=== PATIENT | female | born 1980 | race Hispanic/Latino ===

== ENCOUNTER 2021-03-07 20:35 | Emergency (ER) | payer OTHER, SELFPAY ==
[2021-03-07 21:33] LABS: Urine Blood 2+ (Negative); Urine Glucose Negative (Negative); Urine Protein Negative (Negative); Urine Specific Gravity 1.025 (1.005-1.030); Urine pH 5.5 (5.0-7.0)
[2021-03-07 21:46] LABS: Urine Specific Gravity/Preg 1.025 (1.005-1.030)
[2021-03-07] MEDS ORDERED: NA CHLORIDE 0.9% 1,000 ML ONE (21:59)
[2021-03-07] MEDS ORDERED: ONDANSETRON 4 MG/2 ML VIAL ONE (21:59)
[2021-03-07 22:17] LABS: Absolute Lymphocytes (CBC) 0.6 K/uL (0.7-4.9); Basophils % 0.3 % (0-1.3); Hematocrit 41.6 % (36.0-45.0); Lymphocytes % 9.2 % (15.3-44.8); MPV 8.7 fL (7.6-11.3); RBC Red Blood Cell Count 4.67 M/uL (3.86-4.86)
[2021-03-07 22:33] LABS: Albumin 3.4 g/dL (3.4-5.0); Bilirubin Direct 0.1 mg/dL (0-0.2); Bilirubin Total 0.3 mg/dL (0.2-1.0); Potassium 3.3 mmol/L (3.5-5.1)
[2021-03-07] MEDS ORDERED: FAMOTIDINE 20 MG/2 ML VIAL IV ONE (22:33)
[2021-03-07] MEDS ORDERED: ACETAMINOPHEN 500 MG TAB ONE (22:46)
[2021-03-08] MEDS ORDERED: BENZONATATE 100 MG CAP PO ONE (00:32)
[2021-03-08] MEDS ORDERED: CASIRIVIMAB/IMDEVIMAB 10 ML VIAL ONE (00:34)
[2021-03-08] MEDS ORDERED: NA CHLORIDE 0.9% 250 ML ONE (00:42)
--- NOTE | 2021-03-08 02:35 | EDPHYS ---
Physician Documentation [facility] Name: Anabela Brush Age: 41 yrs Sex: Female : 1980 Arrival Date: 03/07/2021 Time: 20:44 Bed 14 Private MD: ED Physician Shamir Wallace HPI: 03/07 21:40 This 41 yrs old Female presents to ER via Ambulatory with complaints of cp Nausea/Vomiting/Diarrhea, Cough. 21:40 The patient presents to the emergency department with nausea, that is moderate, cp vomiting, that is intermittent, diarrhea, that is intermittent. Onset: The symptoms/episode began/occurred 5 day(s) ago. Possible causes: unknown. Associated signs and symptoms: Pertinent positives: abdominal pain, anorexia, dysuria, fever, Pertinent negatives: constipation, GI bleeding. Severity of symptoms: in the emergency department the symptoms are unchanged despite home interventions. 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 - Social history:: Smoking status: Patient denies any tobacco usage or history of. ROS: 21:45 Constitutional: Positive for body aches, poor PO intake, Negative for fever. cp 21:45 Eyes: Negative for injury, pain, redness, and discharge. cp 21:45 Respiratory: Positive for cough, "sounds productive", Negative for wheezing. 21:45 Abdomen/GI: Positive for abdominal pain, nausea, vomiting, diarrhea, anorexia, Negative for constipation, hematemesis, black/tarry stool, rectal bleeding. 21:45 Skin: Negative for rash. 21:45 Neuro: Negative for altered mental status, syncope, weakness. 21:45 All other systems are negative. Exam: 21:50 Constitutional: The patient appears in no acute distress, alert, awake, cp non-diaphoretic, non-toxic, well developed, well nourished, obese. 21:50 Head/Face: Normocephalic, atraumatic. cp 21:50 Eyes: Periorbital structures: appear normal, Conjunctiva: normal, no exudate, no injection, Sclera: no appreciated abnormality, Lids and lashes: appear normal, bilaterally. 21:50 ENT: External ear(s): are unremarkable, Nose: is normal, Mouth: Lips: moist, Oral mucosa: moist, Posterior pharynx: Airway: no evidence of obstruction, patent, Tonsils: are normal in appearance, Uvula: midline, erythema, is not appreciated, exudate, is not appreciated. 21:50 Neck: ROM/movement: is normal, is supple, without pain, no range of motions limitations, no meningismus. 21:50 Chest/axilla: Inspection: normal, Palpation: is normal, no crepitus, no tenderness. 21:50 Cardiovascular: Rate: tachycardic, Rhythm: regular, Edema: is not appreciated, JVD: is not appreciated. 21:50 Respiratory: the patient does not display signs of respiratory distress, Respirations: normal, no use of accessory muscles, no retractions, labored breathing, is not present, Breath sounds: bronchial sounds, that are mild, are heard diffusely, stridor, is not appreciated, + upper airway congestion. wheezing: is not appreciated. 21:50 Abdomen/GI: Inspection: abdomen appears normal, Bowel sounds: active, all quadrants, Palpation: soft, in all quadrants, nontender, in all quadrants, rebound tenderness, is not appreciated, involuntary guarding, is not appreciated. 21:50 Back: CVA tenderness, is absent. 21:50 Neuro: Orientation: to person, place \\T\\ time. Mentation: is normal, Motor: moves all fours, strength is normal, Sensation: is normal. Vital Signs: 20:56 BP 109 / 85; Pulse 112; Resp 16 S; Temp 99.1(O); Pulse Ox 95% on R/A; Weight 81.65 kg bb (R); Height 5 ft. 0 in. (152.40 cm) (R); Pain 8/10; 21:57 BP 103 / 70; Pulse 106; Resp 19; Pulse Ox 96% on R/A; Pain 0/10; dc2 23:00 BP 108 / 58; Pulse 94; Resp 18; Pulse Ox 99% ; Pain 0/10; dc2 03/08 01:00 BP 115 / 78; Pulse 88; Resp 17; Temp 97.6; Pulse Ox 99% ; Pain 4/10; dc2 01:15 BP 114 / 71; Pulse 87; Resp 18; Pulse Ox 94% ; Pain 4/10; dc2 01:30 BP 111 / 71; Pulse 85; Resp 17; Pulse Ox 95% ; Pain 4/10; dc2 01:45 BP 101 / 70; Pulse 86; Resp 18; Pulse Ox 95% ; Pain 2/10; dc2 02:00 BP 110 / 72; Pulse 86; Resp 17; Pulse Ox 95% ; Pain 2/10; dc2 03:00 BP 107 / 68; Pulse 89; Resp 17; Temp 98.0; Pulse Ox 96% on R/A; Pain 0/10; dc2 03/07 20:56 Body Mass Index 35.15 (81.65 kg, 152.40 cm) bb MDM: 03/07 21:22 Patient medically screened. 03/08 02:32 Data reviewed: vital signs, nurses notes, lab test result(s), radiologic studies, plain cp films. Test interpretation: by ED physician or midlevel provider: plain radiologic studies. ED course: VSS. Patient appears non-toxic and no signs of respiratory distress. Will discharge to home for continued monitoring. 03/07 21:32 Order name: Urine Dipstick-Ancillary; Complete Time: 22:47 EDMS 03/08 02:30 Interpretation: Normal except: UKET 2+; UBLD 2+. cp 03/07 21:44 Order name: Urine --Ancillary; Complete Time: 22:47 EDMS 03/07 21:54 Order name: Basic Metabolic Panel cp 03/07 21:54 Order name: CBC with Diff cp 03/07 21:54 Order name: Hepatic Function cp 03/07 21:54 Order name: Lipase cp 03/07 21:54 Order name: Strep; Complete Time: 02:29 cp 03/07 21:54 Order name: Influenza Screen (a \\T\\ B); Complete Time: 02:29 cp 03/07 21:55 Order name: Basic Metabolic Panel; Complete Time: 22:47 EDMS 03/08 02:29 Interpretation: Normal except: K 3.3; GLUC 129; GFR 65. cp 03/07 21:55 Order name: CBC with Automated Diff; Complete Time: 22:47 EDMS 03/08 02:30 Interpretation: Normal except: ARNULFO% 83.9; LYM% 9.2; LYMA 0.6. 03/07 21:55 Order name: Liver (Hepatic) Function; Complete Time: 22:47 EDMS 03/08 02:30 Interpretation: Normal except: AST 88; ALT 97; GLOB 4.6; A/G 0.7. 03/07 21:54 Order name: IV Saline Lock; Complete Time: 22:04 03/07 21:54 Order name: Labs collected and sent; Complete Time: 22:04 03/07 21:55 Order name: Lipase; Complete Time: 22:47 EDMS 03/07 22:22 Order name: SARS-COV-2 RT PCR; Complete Time: 02:29 EDMS 03/08 02:29 Interpretation: Results reviewed. 03/07 22:49 Order name: XRAY Chest Pa And Lat (2 Views) 03/07 23:06 Order name: Throat Culture EDMS Administered Medications: 03/07 21:39 Drug: NS 0.9% 1000 ml Route: IV; Rate: 1 bolus; Infused Over: 1 hrs; Site: right dc2 antecubital; 22:39 Follow up: IV Status: Completed infusion; IV Intake: 1000ml dc2 21:45 Drug: Zofran (Ondansetron) 4 mg Route: IVP; Site: right antecubital; dc2 22:15 Follow up: Response: Nausea is decreased dc2 22:30 Drug: Tylenol 1000 mg Route: PO; dc2 23:10 Follow up: Response: Pain is decreased dc2 03/08 00:40 Drug: Tessalon Perle (benzonatate) 200 mg Route: PO; dc2 01:30 Follow up: Response: Marked relief of symptoms dc2 00:50 Drug: Casirivimab-Imdevimab Dose Pack 120 mg/mL-120 mg/mL (EUA) 1 application Route: dc2 IV; Rate: 250 ml/hr; Infused Over: 1 hrs; Site: right antecubital; Delivery: Primary tubing; 02:15 Follow up: IV Status: Completed infusion; IV Intake: 250ml dc2 03:06 Drug: Potassium Effervescent Tablet 50 mEq Route: PO; dc2 03:19 Follow up: Response: No adverse reaction dc2 Disposition: 03:44 Co-signature as Attending Physician, Shamir Wallace MD. 7 Disposition Summary: 03/08/21 02:35 Discharge Ordered Location: Home cp Problem: new cp Symptoms: have improved cp Condition: Stable cp Diagnosis - Pneumonia due to SARS-associated coronavirus cp - Diarrhea, unspecified cp - Nausea with vomiting, unspecified cp Followup: cp - With: Private Physician - When: 2 - 3 days - Reason: Recheck today's complaints Discharge Instructions: - Discharge Summary Sheet cp - Food Choices to Help Relieve Diarrhea, Adult cp - Diarrhea, Adult cp - Aspirin and Your Heart cp - COVID-19 cp - COVID-19 Frequently Asked Questions cp - 10 Things You Can Do to Manage Your COVID-19 Symptoms at Home - [facility] cp Forms: - Medication Reconciliation Form cp - Thank You Letter cp - Antibiotic Education cp - Prescription Opioid Use cp Prescriptions: - Zofran 4 mg Oral Tablet - take 1 tablet by ORAL route every 12 hours As needed; 20 tablet; Refills: 0, cp Product Selection Permitted - Tessalon Perles 100 mg Oral Capsule - take 2 capsule by ORAL route every 8 hours As needed; 30 capsule; Refills: 0, cp Product Selection Permitted - Zithromax Z-Ricardo 250 mg Oral Tablet - take 1 tablet by ORAL route as directed for 5 days Day 1 - take two (2) tablets cp one time. Day 2, 3, 4 , 5 take one (1) tablet once daily.; 6 tablet; Refills: 0, Product Selection Permitted - Prednisone 20 mg Oral Tablet - take 2 tablets by ORAL route once daily for 5 days; 10 tablet; Refills: 0, cp Product Selection Permitted Signatures: Dispatcher [employer] EDGriselda Momin RN RN Usama Herrera PA PA cp Shamir Wallace MD MD 7 BaileyMacey RN RN dc2 Corrections: (The following items were deleted from the chart) 03/07 22:22 21:55 CORONAVIRUS+ ordered. EDAR EDMS
--- NOTE | 2021-03-08 02:35 | ER ---
Nurse's Notes [facility] Name: Anabela Brush Age: 41 yrs Sex: Female : 1980 Arrival Date: 03/07/2021 Time: 20:44 Bed 14 Private MD: Diagnosis: Pneumonia due to SARS-associated coronavirus;Diarrhea, unspecified;Nausea with vomiting, unspecified Presentation: 03/07 20:56 Chief complaint: Patient states: she has been feeling sick x 1 week with congestion, bb cough, VILLA, N,V,D, sore throat, difficulty swallowing. Coronavirus screen: congestion, diarrhea, fever, headache, muscle pain, vomiting. Client presents with at least one sign or symptom that may indicate coronavirus-19. Standard/surgical mask placed on the client. Ebola Screen: No symptoms or risks identified at this time. Initial Sepsis Screen: Does the patient meet any 2 criteria? No. Patient's initial sepsis screen is negative. Does the patient have a suspected source of infection? No. Patient's initial sepsis screen is negative. Risk Assessment: Do you want to hurt yourself or someone else? Patient reports no desire to harm self or others. Onset of symptoms was February 28, 2021. 20:56 Method Of Arrival: Ambulatory bb 20:56 Acuity: CECILAI 3 bb Triage Assessment: 20:58 General: Appears in no apparent distress. uncomfortable, Behavior is calm, cooperative. bb Pain: Complains of pain in back. Neuro: Level of Consciousness is awake, alert, obeys commands, Oriented to person, place, time, situation. Cardiovascular: Capillary refill < 3 seconds Patient's skin is warm and dry. Respiratory: Respiratory effort is even, unlabored, Respiratory pattern is regular. GI: Reports diarrhea, nausea, vomiting. Derm: Skin is pink, warm \T\ dry. Musculoskeletal: Circulation, motion, and sensation intact. Reports muscle aches. 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 - Social history:: Smoking status: Patient denies any tobacco usage or history of. Screenin:00 Abuse screen: Denies threats or abuse. Denies injuries from another. Nutritional dc2 screening: No deficits noted. Pt states not much of an appetite the past week due to the nausea and vomiting.. 21:00 Fall Risk None identified. No fall in past 12 months (0 pts). No secondary diagnosis (0 dc2 pts). No IV (0 pts). Ambulatory Aid- None/Bed Rest/Nurse Assist (0 pts). Gait- Normal/Bed Rest/Wheelchair (0 pts) Mental Status- Oriented to own ability (0 pts). Total Alvarado Fall Scale indicates No Risk (0-24 pts). 21:00 Tuberculosis screening: No symptoms or risk factors identified. Never had TB. dc2 Assessment: 21:00 General: Appears in no apparent distress. comfortable, obese, well groomed, well dc2 developed, Behavior is calm, cooperative, Talking and laughing with sister at side. Pt is with an occasional hacky cough. 21:00 Pain: Denies pain. Neuro: No deficits noted. Level of Consciousness is awake, alert, dc2 obeys commands, Oriented to person, place, time, situation. Respiratory: No deficits noted. Reports cough that is non-productive, hacking, since 5 days ago. GI: Abdomen is round non-distended, obese, Bowel sounds present X 4 quads. Reports diarrhea, nausea. : No deficits noted. No signs and/or symptoms were reported regarding the genitourinary system. Urine is clear. EENT: No deficits noted. No signs and/or symptoms were reported regarding the EENT system. Derm: No deficits noted. No signs and/or symptoms reported regarding the dermatologic system. Musculoskeletal: No deficits noted. No signs and/or symptoms reported regarding the musculoskeletal system. Capillary refill < 3 seconds, fingers. 22:15 Reassessment: Pt complain of headache, will make provider aware. ms2 03/08 01:05 Reassessment: 0105 Pt tolerating infusion well, vss, continue to monitor, sister at ms2 bedside, call light within reach. 01:30 Reassessment: Infusion completed, pt voices she feels the same, no needs at this time, dc2 Update with poc regarding watching her for an hour for side effects. Pt voices understanding. VSS. Continue to monitor. 02:00 Reassessment: Infusion continues, vss, pt voices no needs, denies pain, discomfort or dc2 any complaints at this time. Call light within reach. NAD noted. SIster at side. 02:20 Reassessment: correction, infusion completed at 0220 am Unable to fix time on prior dc2 charting . Vital Signs: 03/07 20:56 BP 109 / 85; Pulse 112; Resp 16 S; Temp 99.1(O); Pulse Ox 95% on R/A; Weight 81.65 kg bb (R); Height 5 ft. 0 in. (152.40 cm) (R); Pain 8/10; 21:57 BP 103 / 70; Pulse 106; Resp 19; Pulse Ox 96% on R/A; Pain 0/10; dc2 23:00 BP 108 / 58; Pulse 94; Resp 18; Pulse Ox 99% ; Pain 0/10; dc2 03/08 01:00 BP 115 / 78; Pulse 88; Resp 17; Temp 97.6; Pulse Ox 99% ; Pain 4/10; dc2 01:15 BP 114 / 71; Pulse 87; Resp 18; Pulse Ox 94% ; Pain 4/10; dc2 01:30 BP 111 / 71; Pulse 85; Resp 17; Pulse Ox 95% ; Pain 4/10; dc2 01:45 BP 101 / 70; Pulse 86; Resp 18; Pulse Ox 95% ; Pain 2/10; dc2 02:00 BP 110 / 72; Pulse 86; Resp 17; Pulse Ox 95% ; Pain 2/10; dc2 03:00 BP 107 / 68; Pulse 89; Resp 17; Temp 98.0; Pulse Ox 96% on R/A; Pain 0/10; dc2 03/07 20:56 Body Mass Index 35.15 (81.65 kg, 152.40 cm) ED Course: 03/07 20:44 Patient arrived in ED. wm 20:57 Triage completed. bb 20:58 Arm band placed on Patient placed in an exam room, on a stretcher, on pulse oximetry. bb Family accompanied patient. 21:04 Usama Mcdonough PA is PHCP. cp 21:04 Shamir Wallace MD is Attending Physician. cp 21:15 Patient has correct armband on for positive identification. Placed in gown. Bed in low dc2 position. Call light in reach. Side rails up X 1. child monitor on. Pulse ox on. NIBP on. Door closed. Lights dimmed. 21:19 Macey Avalos, RN is Primary Nurse. dc2 21:25 Inserted saline lock: 20 gauge in right antecubital area, using aseptic technique. dc2 Blood collected. 21:57 No provider procedures requiring assistance completed. dc2 22:02 Lipase Sent. dc2 22:02 Basic Metabolic Panel Sent. dc2 22:02 CBC with Automated Diff Sent. dc2 22:02 Liver (Hepatic) Function Sent. dc2 22:03 Basic Metabolic Panel Sent. dc2 22:04 CBC with Diff Sent. dc2 22:04 Lipase Sent. dc2 22:04 Hepatic Function Sent. dc2 23:[address] via wheelchair. dc2 23:43 XRAY Chest Pa And Lat (2 Views) In Process Unspecified. EDMS 03/08 03:04 IV discontinued, intact, bleeding controlled, No redness/swelling at site. Pressure dc2 dressing applied. Administered Medications: 03/07 21:39 Drug: NS 0.9% 1000 ml Route: IV; Rate: 1 bolus; Infused Over: 1 hrs; Site: right dc2 antecubital; 22:39 Follow up: IV Status: Completed infusion; IV Intake: 1000ml dc2 21:45 Drug: Zofran (Ondansetron) 4 mg Route: IVP; Site: right antecubital; dc2 22:15 Follow up: Response: Nausea is decreased dc2 22:30 Drug: Tylenol 1000 mg Route: PO; dc2 23:10 Follow up: Response: Pain is decreased dc2 03/08 00:40 Drug: Tessalon Perle (benzonatate) 200 mg Route: PO; dc2 01:30 Follow up: Response: Marked relief of symptoms dc2 00:50 Drug: Casirivimab-Imdevimab Dose Pack 120 mg/mL-120 mg/mL (EUA) 1 application Route: dc2 IV; Rate: 250 ml/hr; Infused Over: 1 hrs; Site: right antecubital; Delivery: Primary tubing; 02:15 Follow up: IV Status: Completed infusion; IV Intake: 250ml dc2 03:06 Drug: Potassium Effervescent Tablet 50 mEq Route: PO; dc2 03:19 Follow up: Response: No adverse reaction dc2 Intake: 03/07 22:39 IV: 1000ml; Total: 1000ml. dc2 03/08 02:15 IV: 250ml; Total: 1250ml. dc2 Outcome: 02:35 Discharge ordered by MD. cp 03:14 Discharged to home ambulatory. dc2 03:14 Condition: stable 03:14 Discharge instructions given to patient, Instructed on discharge instructions, follow up and referral plans. Demonstrated understanding of instructions, follow-up care, Prescriptions given X 4. 03:18 Patient left the ED. dc2 Signatures: Dispatcher [employer] EDGriselda Momin RN RN Usama Herrera PA PA cp Marsh, Wendy wm Charters, Denise, RN RN dc2 Corrections: (The following items were deleted from the chart) 02:31 02:15 Reassessment: Infusion completed, pt voices she feels the same, no needs at this dc2 time, Update with poc regarding watching her for an hour for side effects. Pt voices understanding. VSS. Continue to monitor. dc2
[2021-03-08] MEDS ORDERED: POTASSIUM 25 MEQ EFFERV TAB ONE (03:33)
[2021-03-08 04:37] VITALS: BP 107/68; TEMP 98; O2SAT 96
--- NOTE | 2021-03-08 08:09 | RAD REPORT ---
EXAM DESCRIPTION: RAD - Chest Pa And Lat (2 Views) - 03/07/2021 11:43 pm CLINICAL HISTORY: COUGH COMPARISON: ABDOMEN 1 VIEW KUB dated 11/10/2007 FINDINGS: Lines: None. Lungs: Faint airspace disease in left mid lung and left lung base. Pleural: No significant pleural effusions or pneumothorax. Cardiac: The heart size is within normal limits. Bones: No acute fractures. Other: IMPRESSION: Faint airspace disease in the left mid lung and left lung base could reflect pneumonia.
== END 2021-03-08 03:18 | disposition home or self-care (01) ==
LOC: ER 20:35
DX: U07.1 COVID-19 (principal); J12.82 Pneumonia due to coronavirus disease 2019; R19.7 Diarrhea, unspecified
CPT/HCPCS: 36415; 71046; 80048; 80076; 81003; 81025; 83690; 85025; 87070; 87081; 87804; 96361; 96365; 96375; 99285; J2405; J7030; J7050; M0243; U0003

== ENCOUNTER → 2023-06-15 | Emergency (ER) | payer OTHER, SELFPAY ==
[~2023-06-15] MED LIST: CYCLOBENZAPRINE 10 MG TAB ONE
[2023-06-16 00:58] LABS: Specific Gravity 1.017 (1.005-1.030)
[2023-06-16 01:05] LABS: Specific Gravity 1.017 (1.005-1.030); Urine Bacteria <20 /HPF (<20); Urine Bilirubin NEGATIVE (Negative); Urine Blood Trace (Negative); Urine Clarity Extremely Turbid (Clear); Urine Color Light-Yellow (Yellow); Urine Glucose NEGATIVE (Negative); Urine Mucus Slight /HPF (None Seen); Urine Protein TRACE (Negative); Urine Urobilinogen Normal (Normal); Urine pH 6.5 (5.0-7.0)
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
--- NOTE | 2023-06-16 09:41 | RAD REPORT ---
EXAM DESCRIPTION: CT - Abdomen Pelvis Wo Contrast - 06/16/2023 6:15 am CLINICAL HISTORY: ABD PAIN COMPARISON: None Available. TECHNIQUE: CT of the abdomen and pelvis without IV contrast. Evaluation of the solid organs and vasc ulature is suboptimal due to lack of IV contrast. This exam was performed according to our department al dose-optimization program, which includes automated exposure control, adjustment of the mA and/or kV according to patient size and/or use of iterative reconstruction technique. FINDINGS: Lung Bases: The visualized lung bases are clear. Bones: Mild endplate spondylosis, disc narrowing, and facet arthropathy. Abdomen: Liver: Hepatomegaly with diffusely decreased density. Gallbladder: No calcified gallstones. Spleen, Pancreas, and Adrenal Glands: 3.5 cm right adrenal nodule with average Hounsfield units of -6. The left adrenal gland, spleen, and pancreas are unremarkable. Kidneys: The kidneys have normal size without evidence of hydronephrosis. No obstructing ureteral xena culi. Punctate nonobstructing right nephrolithiasis. Vasculature: The aorta and IVC have normal caliber and position. Stomach: The stomach and duodenum have normal course. Other: No free intraperitoneal air. No free fluid or lymphadenopathy. Pelvis: Bladder: Urinary bladder is unremarkable. Bowel: No dilated loops of large or small bowel. Scattered diverticula of the colon. Appendix: Normal appendix. Pelvis: IUD in place. IMPRESSION: 1. No acute inflammatory or obstructive process identified. 2. Hepatomegaly and hepatic steatosis. 3. Diverticulosis without evidence of acute diverticulitis. 4. 3.5 cm right adrenal mass, consistent with lipid-rich benign adenoma. No follow-up imaging is re commended.JACR 2017 Dec; 14(8):1038-44, JCAT 2016 Jul-Aug; 40(2):194-200, Urol J spring; 3(2):71 -4. 5. Punctate nonobstructing right nephrolithiasis. Electronically signed by: Edi Henderson DO 06/16/2023 01:16 AM CONFERENCE RESERVATIONIST M Due to temporary technical issues with the PACS/Fluency reporting system, reports are being signed by the in house radiologists without review as a courtesy to insure prompt reporting. The interpreting radiologist is fully responsible for the content of the report.
[2023-06-16 19:15] VITALS: BP 130/71; TEMP 97.7; O2SAT 98
== END ==
LOC: ER 23:35
DX: M54.50 Low back pain, unspecified (principal); R10.84 Generalized abdominal pain; V49.40XA Driver injured in collision with unspecified motor vehicles in traffic accident, initial encounter
CPT/HCPCS: 74176